=== PATIENT | female | born 1950 | race Caucasian/White ===

== ENCOUNTER → 2016-10-08 | Outpatient (CLI) | payer OTHER, MEDICARE ==
[~2016-10-08] MED LIST: ADVAIR 250-501 EACH IH; ALBUTEROL INH IH; ALBUTEROL SULF8.5 GM INH; ALBUTEROL2.5 MG/0.1 INH; AMBIEN 10 MG TA10 MG PO; CARBAMAZEPINE PO; CARBATROL PO; COLACE100 MG PO; COUMADIN 2.5MG2.5 M1 PO; COUMADIN 5 MG TA5 M1 PO; COUMADIN6 MG PO; DILAUDID 2 MG TA2 MG PO; ERYTHROMYCIN E3.5 G1 OPHTHALMIC; HYDROCODON-ACE1 EAC5 PO; HYDROCODON-ACE1 EAC7 PO; HYDROCODON-ACE1 EAC8 PO; IMURAN 50MG TAB50 M1 PO; K-DUR 20 MEQ T20 MEQ PO; MIRALAX17 GM PO; MULTIVITAMINS PO; NEURONTIN 400400 M1 PO; ONDANSETRON HCL4 M2 PO; OXYCONTIN20 M1 PO; PAXIL20 MG PO; PREDNISONE 10 M10 M1 PO; PROTONIX40 M1 PO; SENNA PO; TRACLEER PO; TYLENOL325 MG PO; VITAMIN D1000 UNI1 PO; VITAMIN D2000 UNIT PO; XANAX XR1 MG PO; XARELTO10 MG PO; XARELTO15 MG PO; XOPENEX1.25 MG/3 IH; ZANAFLEX4 MG PO; [UNRECOGNIZED DRUG - OTHER] PO
== END ==
LOC: RAD 13:41
DX: N63 Unspecified lump in breast (principal); R92.8 Other abnormal and inconclusive findings on diagnostic imaging of breast

== ENCOUNTER 2018-03-18 05:17 | Day surgery (SDC) | payer OTHER, MEDICARE ==
[~2018-03-18] VITALS: Ht 160 cm; Wt 69.4 kg
--- NOTE | ~2018-03-18 | O ---
[facility] [place] [address] OPERATIVE REPORT Name: KARINA CANTOR JUAN Room #: DEP [facility]..#: [id number] Admission: 03/18/18 Attend Phys: Surjit Strange MD Discharge: 03/18/18 Date of : 54 Report #: [id number] THIS REPORT FOR: //name// CC: HAILEY BEAN HILLARY TOMASZ Strange DATE OF SERVICE: 03/18/2018 PREOPERATIVE DIAGNOSIS: Unilateral left nasal lacrimal duct obstruction. POSTOPERATIVE DIAGNOSIS: Unilateral left nasal lacrimal duct obstruction. OPERATION PERFORMED: Unilateral left endoscopic dacryoplasty with silicone intubation. ANESTHESIA: General. COMPLICATIONS: None. INDICATIONS FOR SURGERY: This patient has acquired unilateral nasal lacrimal duct stenosis with chronic tearing and discharge. The current procedures are undertaken in order to improve the patient's level of lacrimal outflow and visual clarity. Informed consent was obtained to include but not limited to the potential risks for damage to the eye, loss of vision, bleeding, infection, failure to improve the problem and need for further surgery. DESCRIPTION OF OPERATION: The patient was taken to the operating room, where general anesthesia was administered. The medial canthus was anesthetized with 2% Xylocaine with epinephrine mixed with equal parts of 0.75% Marcaine with Wydase. The lateral wall of the nose was then injected with the same anesthetic mixture. The nose was packed with Afrin-soaked Cottonoids. The patient was then prepped and draped in the usual sterile fashion. The superior and inferior puncta were then atraumatically dilated with a punctum dilator. A size 0 lacrimal probe was then passed through the superior canalicular system and through the stenosed nasal lacrimal duct. The nasal packing was removed and the endoscope was brought into the field. The inferior turbinate was gently infractured with a Yale periosteal elevator to allow visualization of the inferior meatus in the area of the opening of the valve of Hasner in the nose. The probe was found and confirmed to be in the proper location. It was removed and subsequently replaced with a size 1 and a size 2 Vargas probe, which also had their passage confirmed endoscopically to be in the [facility] [address] [place] [address] OPERATIVE REPORT Name: KARINA CANTOR Room #: DEP [facility] M..#: [id number] Admission: 03/18/18 Attend Phys: Surjit Strange MD Discharge: 03/18/18 Date of : 54 Report #: [id number] proper location. A 3 x 15 LacriCatheter was lubricated with a small quantity of ophthalmic antibiotic ointment. The LacriCatheter was then passed through the superior canalicular system and the stenosed nasal lacrimal duct. The LacriCatheter was confirmed to be in the proper location endoscopically intranasally in the inferior meatus. The LacriCatheter was inflated to 9 atmospheres for 90 seconds and deflated. The catheter was then inflated to 9 atmospheres for 60 seconds. The catheter was then withdrawn to the proximal black ring. It was then inflated to 9 atmospheres for 90 seconds. The balloon was then deflated and reinflated to 9 atmospheres for 60 seconds. The balloon was the aspirated and withdrawn to the distal black ring. It was then inflated to 9 atmospheres for 90 seconds. The balloon was deflated and reinflated to 9 atmospheres for 60 seconds. The balloon was then deflated and vigorously aspirated as it was withdrawn through the superior canalicular system. A Chavis tube was then passed through the superior canalicular system and out the dilated duct. The Chavis tube was secured under the inferior turbinate in the inferior meatus with a Chavis hook and retrieved endoscopically. The Chavis tube was then passed through the inferior canalicular system in a similar fashion and was retrieved endoscopically in the nose atraumatically. The Chavis tube was then secured to itself with 3 square throws and then to the lateral wall of the nose with a 5-0 Prolene suture. Antibiotic steroid drops were then placed in the eye. A small quantity of ophthalmic antibiotic ointment was placed on the Chavis tube. The patient was then transported to the recovery area with no anesthetic or operative complications being noted. <ELECTRONICALLY SIGNED> By: Surjit Strange MD 03/29/18 0626 [id number] [id number] Surjit Strange MD /nt
[~2018-03-18 05:17] MED LIST changes: +BYSTOLIC 5 MG5 M1 PO; +CALCIUM 600 +1 EAC2 PO; +CYMBALTA30 MG PO; +KLOR-CON 1010 MEQ PO; +LIPITOR 20 MG T20 M1 PO; +NEURONTIN800 MG PO; +SINEMET 25-2501 EAC1 PO; +VITAMIN D31000 UNI2 PO
[2018-03-18 11:46] VITALS: BP 178/83
== END 2018-03-18 13:51 | disposition home or self-care (01) ==
LOC: OR 05:17 → TBA 05:18 → OR 11:07
DX: H04.552 Acquired stenosis of left nasolacrimal duct (principal); J45.909 Unspecified asthma, uncomplicated; F32.9 Major depressive disorder, single episode, unspecified; F41.9 Anxiety disorder, unspecified; K21.9 Gastro-esophageal reflux disease without esophagitis; Z87.891 Personal history of nicotine dependence; Z85.828 Personal history of other malignant neoplasm of skin; Z90.710 Acquired absence of both cervix and uterus; Z90.49 Acquired absence of other specified parts of digestive tract; Z98.41 Cataract extraction status, right eye; Z98.42 Cataract extraction status, left eye; Z96.641 Presence of right artificial hip joint; Z96.652 Presence of left artificial knee joint; Z86.711 Personal history of pulmonary embolism; Z79.01 Long term (current) use of anticoagulants; Z88.0 Allergy status to penicillin; Z79.899 Other long term (current) drug therapy; Z79.891 Long term (current) use of opiate analgesic
CPT/HCPCS: 50010; 50101; 50386; 50398; 51777; 55343; 56528; 62110; 62900; 70005

== ENCOUNTER → 2018-07-28 | Outpatient (CLI) | payer OTHER, MEDICARE | LOC: ULTRA 07-14 08:22 | DX: E04.2 Nontoxic multinodular goiter (principal) ==

== ENCOUNTER → 2018-08-16 | Outpatient (CLI) | payer OTHER, MEDICARE | LOC: RAD 14:23 | DX: I51.7 Cardiomegaly (principal); R50.9 Fever, unspecified; R53.1 Weakness; I27.20 Pulmonary hypertension, unspecified; Z88.0 Allergy status to penicillin ==

== ENCOUNTER → 2018-09-21 | Outpatient (CLI) | payer OTHER, MEDICARE | LOC: MRI 11:26 | DX: M75.121 Complete rotator cuff tear or rupture of right shoulder, not specified as traumatic (principal); S43.401A Unspecified sprain of right shoulder joint, initial encounter; M62.511 Muscle wasting and atrophy, not elsewhere classified, right shoulder; M25.411 Effusion, right shoulder; X58.XXXA Exposure to other specified factors, initial encounter; Y93.89 Activity, other specified; Y92.89 Other specified places as the place of occurrence of the external cause; Y99.8 Other external cause status ==

== ENCOUNTER → 2019-11-21 | Outpatient (CLI) | payer OTHER, MEDICARE ==
[~2019-11-21] MED LIST changes: +CARBIDOPA-LEVO1 EA10 PO; +PROLIA60 MG/1 ML SUBQ
== END ==
LOC: CAT 15:27
PROVIDERS: ATTEND Internal Medicine
DX: J47.9 Bronchiectasis, uncomplicated (principal); J98.4 Other disorders of lung; J84.9 Interstitial pulmonary disease, unspecified

== ENCOUNTER 2019-12-28 06:24 | Inpatient (IN) | payer OTHER, MEDICARE ==
[2019-12-20 14:57] LABS: URINE BILIRUBIN NEGATIVE (Negative); URINE BLOOD NEGATIVE (Negative); URINE CLARITY CLEAR; URINE COLOR YELLOW; URINE GLUCOSE-RANDOM* NEGATIVE (Negative); URINE KETONES TRACE (Negative); URINE LEUKOCYTES-REFLEX TRACE (Negative); URINE NITRITE-REFLEX NEGATIVE (Negative); URINE PROTEIN (DIPSTICK) TRACE (Negative); URINE SPECIFIC GRAVITY >= 1.030 (1.005-1.035); URINE UROBILINOGEN 0.2 E.U./dl (0.2-1.0)
[2019-12-20 14:59] LABS: HEMATOCRIT 36.9 % (37.0-47.0); HEMOGLOBIN 12.3 gm/dL (12.0-15.0); MCH 31.6 pg (26.0-34.0); MCHC 33.5 g/dL (28.0-37.0); MCV 94.4 fL (80.0-100.0); RBC 3.91 mil/uL (4.20-5.00); RDW 14.3 % (10.5-14.5); WBC 9.4 thou/uL (4.0-11.0)
[2019-12-20 15:10] LABS: CALCIUM 9.2 mg/dL (8.5-10.1); POTASSIUM 3.4 mmol/L (3.5-5.1)
[2019-12-20 15:11] LABS: PROTIME 10.7 Seconds (9.3-11.4)
[~2019-12-28] VITALS: Ht 162.6 cm; Wt 59.0 kg
[2019-12-28 13:00] VITALS: BP 111/63
[2019-12-28 16:53] VITALS: BP 132/82
[2019-12-28 17:31] LABS: CALCIUM 9.3 mg/dL (8.5-10.1)
[2019-12-28 20:12] VITALS: BP 130/79
[2019-12-29 06:31] LABS: HEMATOCRIT 29.4 % (37.0-47.0); HEMOGLOBIN 9.8 gm/dL (12.0-15.0)
[2019-12-29 06:38] LABS: POTASSIUM 4.2 mmol/L (3.5-5.1)
[2019-12-29 07:42] VITALS: BP 138/62
[2019-12-29 15:23] VITALS: BP 146/67
[2019-12-29 22:00] VITALS: BP 161/82
[2019-12-30 03:10] VITALS: BP 83/42
[2019-12-30 10:32] VITALS: BP 83/42
[2019-12-30 10:50] VITALS: BP 119/48
[2019-12-30 16:19] LABS: HEMOGLOBIN 9.7 gm/dL (12.0-15.0)
[2019-12-30 17:52] VITALS: BP 140/68
[2019-12-30 20:30] VITALS: BP 144/75
[2019-12-31 03:30] VITALS: BP 135/73
[2019-12-31 10:53] LABS: HEMATOCRIT 26.5 % (37.0-47.0); HEMOGLOBIN 9.1 gm/dL (12.0-15.0)
[2019-12-31 12:51] VITALS: BP 83/42
[2019-12-31 13:14] VITALS: BP 83/42
[2019-12-31 13:50] VITALS: BP 152/88
--- NOTE | 2020-01-04 13:10 | O ---
[facility] [place] [address] OPERATIVE REPORT Name: KARINA CANTOR Room #: 437-P [facility] IN M.R.#: [id number] Admission: 12/28/19 Attend Phys: Joseph Garland Discharge: 12/31/19 Date of : 54 Report #: [id number] THIS REPORT FOR: cc: Nohemy Nash DNP, Mary E. DNP VanDenBerghe, Gregory R. MD ~ CC: Joseph Nash DATE OF SERVICE: 12/28/2019 PREOPERATIVE DIAGNOSES: Right shoulder pain, massive rotator cuff tear, glenohumeral joint osteoarthritis, biceps tendinopathy and partial thickness tearing. POSTOPERATIVE DIAGNOSES: Right shoulder rotator cuff tear arthropathy with biceps tendinopathy and partial thickness tearing. PROCEDURE PERFORMED: Right reverse total shoulder arthroplasty with open biceps tenodesis. SURGEON: Joseph Vazquez MD ROUGE PRESSER: Yolanda Carmona PA-C. ANESTHESIA: General. FLUIDS: 1 liter of crystalloid. ESTIMATED BLOOD LOSS: 25 mL. IMPLANTS UTILIZED: DePuy Delta Xtend size 10 stem with a size 1 epiphysis PÉREZ coated, 38+2 eccentric glenosphere with standard Metaglene. DESCRIPTION OF PROCEDURE: After proper identification of the patient and operative site in preoperative holding area, the operative site was signed by myself. Prophylactic antibiotics given. The patient elected to receive a general anesthetic. Her icer machine operator, Dr. Terence Rodriguez has recommended we avoid an interscalene block if at all possible. She was also managed by Dr. Howard Fischer for her chronic polyarthralgias and arthritis. The patient's COVID test was negative. She was brought back to the operative suite after induction of satisfactory general anesthesia. She was very carefully positioned in the beach chair with head of bed elevated approximately 40 degrees. IV access has been very difficult for this patient due to her extensive past medical history. Her port was used over her right hemithorax as well as left foot peripheral IV [address] [address] OPERATIVE REPORT Name: SAKSHIKARINA JUAN Room #: 437-P [facility] IN M.R.#: [id number] Admission: 12/28/19 Attend Phys: Joseph Garland Discharge: 12/31/19 Date of : 54 Report #: [id number] was utilized. This required extra time to get IV access within the operative suite. Right shoulder was then sterilely prepped and draped in the usual manner. Anterior deltopectoral approach was planned. Final skin draping was with Ioban. A ParkVu limb positioning system was utilized throughout the entire procedure. Skin was incised sharply. Full thickness skin flaps were developed. Deltopectoral interval was established. Cephalic vein was retracted laterally and preserved throughout the entire procedure. The subdeltoid space was freed bluntly. Subdeltoid adhesions were noted. There was a massive rotator cuff tear involving complete subscapularis, supraspinatus and infraspinatus portion of the teres minor was still intact. Extensive degenerative change and arthrosis was noted on the humeral head as well as the glenoid. Long head of the biceps tendon was identified, high-grade partial thickness tearing was noted. It was tenodesed to the undersurface of the pectoralis major using #2 FiberWire. Inferior capsule was carefully released off the humeral head. Humeral head was delivered and oscillating saw was used to prepare the superior surface. Next, hand reaming up to a size 10 stem was performed, which matched preoperative templating. Using the appropriate guide, humeral head osteotomy was performed in approximately 15 degrees of retroversion. This provided the best coverage of the epiphyseal portion of the humeral component. Next, the peripheral osteophytes were removed. A protection plate was applied and then attention was divided to the glenoid. Anterior capsule was carefully released. Labrum was released circumferentially as well as remaining long head of the biceps tendon. The patient had a small glenoid, but it was amenable to reverse total shoulder arthroplasty. There was excellent glenoid exposure. Guide pin was then placed within the center of the glenoid. This glenoid was not large enough to place this guide pin any more inferior. Once this was satisfactorily positioned, glenoid face was reamed. Hunter reamer was utilized. Any peripheral soft tissue and the labrum that remained were then carefully debrided. Step drill was utilized. Central peg was well contained. Next, a standard Metaglene was carefully impacted into position and had good rotational stability. Inferior and superior locking screws were drilled and tightened over guidewires. These had excellent purchase and measured 30 mm in length. Twin 18 mm nonlocking screws were placed in the anterior and posterior holes and these had excellent purchase. Screws were sequentially tightened and the locking screws were tightened. Next, a 38+2 eccentric glenosphere was inserted over a guidewire. Its rotation and all position was verified. Locking screw was rotated counterclockwise until an audible click was noted. This was felt fully seated and then this was tightened, impacted and tightened three additional times. This was deemed to be fully seated. Next, a size 10 trial stem was assembled and a +3 polyethylene liner provided the best overall soft tissue tension. Trial components were removed. Joint was thoroughly irrigated with normal saline. This had been performed multiple times throughout the procedure. The implant was assembled and impacted into position. It was well seated and had excellent rotational stability and then the trial polyethylene cups were again utilized and a +3 implant was chosen. The polyethylene was carefully impacted into position, felt to be firmly seated. [facility] [address] [place] [address] OPERATIVE REPORT Name: SASKHIKARINA JUAN Room #: 437-P [facility] IN M.R.#: [id number] Admission: 12/28/19 Attend Phys: Joseph Garland Discharge: 12/31/19 Date of : 54 Report #: [id number] joint was reduced. It was again thoroughly irrigated. There was no remaining subscapularis to repair. One gram vancomycin powder was utilized, half at deep, half at more superficial. Deltopectoral interval was closed with 0 Vicryl, 2-0 Vicryl for subcutaneous tissues and final skin closure with running 4-0 Monocryl. Dermabond was applied as well as sterile dressing. 20 mL of 0.2% Naropin was injected around the skin edges to aid in postoperative pain control. Additional surgical time was needed for the complexity of the glenosphere and Metaglene placement for the reverse total shoulder arthroplasty and a qualified lead dental assistant utilized throughout the entire procedure to aid in patient limb positioning, visualization and retraction of soft tissues, instrument passage, closure and sling and dressing application. <ELECTRONICALLY SIGNED> By: Joseph Vazquez MD 01/04/20 1310 0938 1018 Joseph Vazquez MD /antoinette
== END 2019-12-31 13:53 | disposition home health service (06) | DRG 483 ==
LOC: 4S 06:24 → TBA 06:24 → 4S 12:15 → PRE 13:02 → 4S 12-31 13:53
PROVIDERS: Hospitalist; Physician Assistant Surgical; ADMIT Orthopaedic Surgery Sports Medicine; ATTEND Orthopaedic Surgery Sports Medicine
PROC: 0RRJ00Z Replacement of Right Shoulder Joint with Reverse Ball and Socket Synthetic Substitute, Open Approach (ICD-10-PCS; principal; 2019-12-28)
DX: M75.101 Unspecified rotator cuff tear or rupture of right shoulder, not specified as traumatic (principal); D62 Acute posthemorrhagic anemia; M19.011 Primary osteoarthritis, right shoulder; M75.21 Bicipital tendinitis, right shoulder; E78.5 Hyperlipidemia, unspecified; Z20.828 Contact with and (suspected) exposure to other viral communicable diseases; K21.9 Gastro-esophageal reflux disease without esophagitis; Z79.52 Long term (current) use of systemic steroids; Z92.21 Personal history of antineoplastic chemotherapy; Z82.49 Family history of ischemic heart disease and other diseases of the circulatory system; Z86.711 Personal history of pulmonary embolism; Z79.01 Long term (current) use of anticoagulants; Z88.0 Allergy status to penicillin
CPT/HCPCS: 10102; 50010; 50101; 50172; 50386; 50417; 50733; 50935; 51320; 52001; 52138; 52256; 53000; 53078; 54118; 56524; 56525; 56526; 56530; 57095; 57103; 57423; 57468; 57470; 57471; 57472; 57944; 58152; 58154; 58180; 58181; 62110; 62900; 70005

== ENCOUNTER → 2020-05-16 | Outpatient (CLI) | payer OTHER, MEDICARE | LOC: SJCVCIMAG 08:46 | PROVIDERS: ATTEND Internal Medicine | DX: I08.2 Rheumatic disorders of both aortic and tricuspid valves (principal); R94.31 Abnormal electrocardiogram [ECG] [EKG]; I25.10 Atherosclerotic heart disease of native coronary artery without angina pectoris; E78.5 Hyperlipidemia, unspecified; I10 Essential (primary) hypertension; M32.9 Systemic lupus erythematosus, unspecified; C43.9 Malignant melanoma of skin, unspecified; G20 Parkinson's disease; C21.0 Malignant neoplasm of anus, unspecified; Z79.01 Long term (current) use of anticoagulants; Z79.899 Other long term (current) drug therapy; Z86.711 Personal history of pulmonary embolism ==

== ENCOUNTER 2020-06-12 17:17 | Emergency (ER) | payer OTHER, MEDICARE ==
[~2020-06-12] VITALS: Ht 160 cm; Wt 41.7 kg
[2020-06-12 19:06] LABS: BASOPHILS 0.7 % (0.0-2.0); EOSINOPHILS 0.1 % (0.0-3.0); HEMATOCRIT 35.2 % (37.0-47.0); HEMOGLOBIN 11.5 gm/dL (12.0-15.0); LYMPHOCYTES 2.7 % (24.0-44.0); MCH 29.9 pg (26.0-34.0); MCHC 32.6 g/dL (28.0-37.0); MCV 91.8 fL (80.0-100.0); MONOCYTES 4.6 % (1.0-8.0); PLATELET COUNT 488 thou/uL (150-400); POLYS 91.9 % (36.0-66.0); RBC 3.83 mil/uL (4.20-5.00); RDW 15.8 % (10.5-14.5); WBC 7.6 thou/uL (4.0-11.0)
[2020-06-12 19:14] LABS: ANION GAP 8 mmol/L (7-16); BUN 9 mg/dL (7-18); CALCIUM 9.4 mg/dL (8.5-10.1); CHLORIDE 98 mmol/L (98-107); CO2 34 mmol/L (21-32); GLUCOSE 114 mg/dL (74-106); POTASSIUM 3.4 mmol/L (3.5-5.1); SODIUM 140 mmol/L (136-145)
[2020-06-12 19:24] LABS: ALBUMIN 3.2 g/dL (3.4-5.0); DIRECT BILIRUBIN 0.2 mg/dL (<0.1-0.2); SGOT 16 U/L (15-37); SGPT 11 U/L (30-65); TOTAL BILIRUBIN 0.5 mg/dL (0.2-1.0); TOTAL PROTEIN 6.6 g/dL (6.4-8.2); TROPONIN-I <0.06 ng/mL (<0.06)
[2020-06-12] MEDS ORDERED: ADVAIR 100-501 EACH INH (22:00)
[2020-06-12] MEDS ORDERED: PREDNISONE 20 M20 MG PO (22:00)
[2020-06-12] MEDS ORDERED: PROAIR RESPICL90 MCG INH (22:00)
[2020-06-12 22:52] VITALS: BP 174/77
--- NOTE | 2020-06-13 07:32 | EKG ---
[address] [place] [address] ELECTROCARDIOGRAM REPORT Name: KARINA CANTOR JUAN Room #: [facility]#: [id number] Admission: 06/12/20 Attend Phys: Discharge: 06/12/20 Date of : 54 Report #: [id number] [facility] ED Test Date: 2020-06-12 Test Time: 19:28:04 Pat Name: KARINA CANTOR Department: Room: Gender: F Department Head College Or [employer]: [employer] : 1950 Requested By: Julia Gastelum Order Number: [id number] MD: Emeka Dawn Measurements Intervals [place] Rate: 87 P: 37 HI: 122 QRS: 11 QRSD: 107 T: 35 QT: 390 QTc: 470 Interpretive Statements Sinus rhythm Probable left atrial enlargement Abnormal R-wave progression, late transition Nonspecific T abnormalities, anterior leads Compared to ECG 10/31/2014 07:09:34 T-wave abnormality now present Electronically Signed On 06-13-2020 7:32:17 ADMISSIONS SPECIALIST by Emeka Dawn [email or web address] <ELECTRONICALLY SIGNED> By: Emeka Dawn MD, [facility] 06/13/20 07 27 27 Emeka Dawn MD, FACC /EPI
== END 2020-06-12 22:52 | disposition home or self-care (01) ==
LOC: ER 17:17
PROVIDERS: Emergency Medicine
DX: R09.02 Hypoxemia (principal); J98.4 Other disorders of lung; J45.909 Unspecified asthma, uncomplicated; K21.9 Gastro-esophageal reflux disease without esophagitis; Z90.49 Acquired absence of other specified parts of digestive tract; Z90.710 Acquired absence of both cervix and uterus; Z87.891 Personal history of nicotine dependence; Z79.899 Other long term (current) drug therapy; Z88.0 Allergy status to penicillin; Z20.828 Contact with and (suspected) exposure to other viral communicable diseases

== ENCOUNTER → 2020-08-17 | Outpatient (CLI) | payer OTHER, MEDICARE ==
[~2020-08-17] MED LIST changes: +ADVAIR 100-501 EACH INH; +PREDNISONE 20 M20 MG PO; +PROAIR RESPICL90 MCG INH
== END ==
LOC: LAB 13:33
PROVIDERS: ATTEND Anesthesiology
DX: Z01.812 Encounter for preprocedural laboratory examination (principal); Z20.822 Contact with and (suspected) exposure to COVID-19

== ENCOUNTER 2021-05-16 06:34 | Day surgery (SDC) | payer OTHER, MEDICARE ==
[~2021-05-16] VITALS: Ht 160 cm; Wt 59.0 kg
--- NOTE | ~2021-05-16 | O ---
[facility] [place] [address] OPERATIVE REPORT Name: KARINA CANTOR Room #: 150-5 [facility]..#: [id number] Admission: 05/16/21 Attend Phys: Surjit Strange MD Discharge: Date of : 54 Report #: [id number] THIS REPORT FOR: cc: Nohemy Nash DNP, Mary E. DNP White, William L. MD ~ cc: Howard Fischer MD, Alexander Sue MD DATE OF SERVICE: 05/16/2021 PREOPERATIVE DIAGNOSIS: Tumor of right upper lid. POSTOPERATIVE DIAGNOSIS: Tumor of right upper lid. PROCEDURE: Excision of tumor of right upper lid with frozen section control of margins and myocutaneous flap repair of defect. SURGEON: Surjit Strange MD MARKETING COPYWRITER: None. ANESTHESIA: MAC. COMPLICATIONS: None. 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 She presents today for excision of this lesion with frozen sections and subsequent reconstruction of that defect. Informed consent was obtained to include but not limited to the potential risk for loss of vision, bleeding, infection, failure to improve the problem, the potential need for further surgery or treatment. DESCRIPTION OF PROCEDURE: The patient was taken to the operating room where 2% Xylocaine with epinephrine mixed with equal parts 0.75% Marcaine with Wydase was administered transconjunctivally and transcutaneously to the right upper lid and medial canthus. The patient was subsequently prepped and draped in the usual sterile fashion. A fine tip skin marking pen was then utilized to outline the lesion including approximately 2 mm of normal appearing tissue. The incisions were then made perpendicularly across the eyelid margin and drawn to a point around the arcus marginalis. The specimen was then oriented on a drawing for the waiting pathologist as hemostasis was achieved in the field with diligent pinpoint monopolar cautery. The pathologist snap froze that tissue and found that she saw an extensive amount of acute and chronic inflammation, but she felt that our margins were clear of frankly neoplastic disease. She deferred her definitive diagnosis for the main body of the lesion for permanent sections. [address] [address] OPERATIVE REPORT Name: KARINA CANTOR JUAN Room #: [address] [place] [address]..#: [id number] Admission: 05/16/21 Attend Phys: Surjit Strange MD Discharge: Date of : 54 Report #: [id number] The defect inspected. Reconstructive options were considered. It was elected to use a myocutaneous flap from lateral to be rotated back medially and inferiorly to correct the defect. The relaxing incision made and the undermining accomplished allowing the flap to mobilize as a unit. Hemostasis was then re-achieved. The flap was then advanced and secured with a deep layer of interrupted 6-0 Vicryl sutures. The eyelid margin was reapproximated with interrupted 6-0 Vicryl sutures and then 7-0 Vicryl sutures on the skin margin. The subcutaneous structures and the skin more superficially were closed with interrupted 6-0 plain gut sutures. The wounds were then cleaned and dressed with erythromycin ophthalmic ointment. The patient subsequently transported to the recovery area having tolerated the procedure well with no anesthetic or operative complications being noted. By: 0917 0936 Surjit Strange MD /nt
[~2021-05-16 06:34] MED LIST changes: +AMANTADINE 100100 MG PO; +CARBIDOPA-LEVO1 EAC9 PO; +DULOXETINE HCL60 MG PO; +LEVOTHYROXINE50 MCG PO; +NORCO 10-325 T1 EACH PO; +VITAMIN D325 MC2 PO; +WIXELA 100-501 EACH INH
[2021-05-16 08:30] VITALS: BP 134/79
--- NOTE | 2021-05-20 12:06 | PATH ---
[facility] [place] [address] PATHOLOGY RPT PROCEDURE Name: KARINA CANTOR Room #: [facility].#: [id number] Admission: 05/16/21 Date of : 54 Discharge: 05/16/21 Report #: [id number] Path Case #: [id number] [facility] Accession Number: [id number] . 01 Material submitted: . eyelid - LESION LEFT UPPER EYELID-FS. Modifiers: left, upper . 01 Clinical history: . NEOPLASM OF UNCERTAIN BEHAVIOR OF SKIN EXCISION OF LESION EYE 0.9X0.5X0.5CM -INFLAMMATION -MARGINS ARE NEGATIVE . 02 Frozen section diagnosis: . FROZEN SECTION DIAGNOSIS (Camryn Maddox MD) . Left upper lid lesion, excision: - Inflammation. - Margins are negative. . The report is given to Dr. Strange by Dr. Cowan at [facility] on 05/16/2021, and a written report is placed in the patient's chart. . . Frozen section performed at [facility], [address], [place] [address]. . . FROZEN SECTION GROSS DESCRIPTION: The specimen is received fresh from the operating room labeled with the patient's name and "lesion left upper eyelid", consists of a triangular skin fragment which measures 0.9 x 0.5 x 0.5 cm. The superior tip is inked red, the lateral margin is inked black, and the medial margin is inked blue. The specimen is serially sectioned and submitted entirely for frozen section diagnosis in FSA1 and then subsequently in formalin in block A1. (ANK:brigida; 05/16/2021) ELIEZERK/JOES . 03 Diagnosis: Lesion, left upper eyelid, excision: - Skin with extensive acute and chronic inflammation, folliculitis, and severe actinic changes. - Negative for invasive malignancy. . (ANK:mml; 05/20/2021) [address] [address] PATHOLOGY RPT PROCEDURE Name: KARINA CANTOR Room #: DEP [facility].#: [id number] Admission: 05/16/21 Date of : 54 Discharge: 05/16/21 Report #: [id number] Path Case #: [id number] QLM 05/20/2021 1035 Local . 03 Comment: This case has been co-reviewed by Dr. Denise Monaco, who agrees on 05/20/2021. . (ANK:mml; 05/20/2021) . 03 Electronically signed: . Nannette Cowan MD, Pathologist NPI- [id number] . 01 Gross description: . PLEASE SEE GROSS DESCRIPTION UNDER FROZEN SECTION HEADING. /QMS 05/16/2021 1154 Local . 03 Pathologist provided ICD-10: L08.9, L73.8 . 03 CPT . 979262, 301913 Specimen Comment: A courtesy copy of this report has been sent to [phone] Specimen Comment: [phone] Specimen Comment: Report sent to / DR TOLBERT Performed at: [address], [place] [id number] MD Raymond Lyon MD Phone: [phone] Performed at: [address] [id number] MD Joanne Alvarenga MD Phone: [phone] Performed at: [facility] [id number] [place] [id number] MD Denise Monaco MD Phone: [phone]
== END 2021-05-16 10:55 | disposition home or self-care (01) ==
LOC: OR 06:34 → TBA 06:37 → OR 08:55
PROVIDERS: ATTEND Ophthalmology
DX: L73.8 Other specified follicular disorders (principal); L08.9 Local infection of the skin and subcutaneous tissue, unspecified; E78.5 Hyperlipidemia, unspecified; J45.909 Unspecified asthma, uncomplicated; F32.9 Major depressive disorder, single episode, unspecified; F41.9 Anxiety disorder, unspecified; G20 Parkinson's disease; K21.9 Gastro-esophageal reflux disease without esophagitis; Z98.890 Other specified postprocedural states; Z79.899 Other long term (current) drug therapy; Z85.828 Personal history of other malignant neoplasm of skin; Z20.822 Contact with and (suspected) exposure to COVID-19; Z87.891 Personal history of nicotine dependence; Z87.442 Personal history of urinary calculi; Z96.652 Presence of left artificial knee joint; Z96.641 Presence of right artificial hip joint; Z96.611 Presence of right artificial shoulder joint; Z90.49 Acquired absence of other specified parts of digestive tract; Z90.710 Acquired absence of both cervix and uterus; Z85.820 Personal history of malignant melanoma of skin
CPT/HCPCS: 50010; 50101; 50386; 50398; 51636; 56528; 56531; 62110; 62850; 70005

== ENCOUNTER → 2021-05-31 | Outpatient (CLI) | payer OTHER, MEDICARE | LOC: SJCVCIMAG 05-22 07:46 | PROVIDERS: ATTEND Internal Medicine | DX: R94.31 Abnormal electrocardiogram [ECG] [EKG] (principal); I35.8 Other nonrheumatic aortic valve disorders; I25.10 Atherosclerotic heart disease of native coronary artery without angina pectoris; E78.5 Hyperlipidemia, unspecified; I27.0 Primary pulmonary hypertension; M32.0 Drug-induced systemic lupus erythematosus; C43.9 Malignant melanoma of skin, unspecified; G20 Parkinson's disease; C21.0 Malignant neoplasm of anus, unspecified; I10 Essential (primary) hypertension; Z86.711 Personal history of pulmonary embolism; Z79.01 Long term (current) use of anticoagulants; E11.9 Type 2 diabetes mellitus without complications; Z88.8 Allergy status to other drugs, medicaments and biological substances; Z88.0 Allergy status to penicillin; Z87.891 Personal history of nicotine dependence ==